=== PATIENT | male | born 1940 | race Caucasian/White ===

== ENCOUNTER → 2017-07-23 | Outpatient (CLI) | payer MEDICARE, OTHER ==
--- NOTE | 2017-07-23 13:05 | Diagnostic Imaging Report ---
PROCEDURE:X-RAY ABDOMEN - KUB COMPARISON:KUB dated 12/24/16 INDICATIONS:RENAL STONES, FOLLOW UP. DENIES COMPLAINTS. FINDINGS: There is a non-obstructed bowel-gas pattern. Unchanged left renal calculi, measuring 7 mm in the inferior pole and 5 mm in the mid pole. There are also multiple subcentimeter right renal calculi, measuring up to 4 mm, unchanged. There are no acute osseous abnormalities. Unchanged right upper quadrant calcification, represents a gallstone or hepatic calcified granuloma. CONCLUSION: Unchanged left renal calculi, measuring 7 mm in the inferior pole and 5 mm in the mid pole. Multiple subcentimeter right renal calculi, measuring up to 4 mm, unchanged. Dictated by: Nirmal Navas M.D. on 07/23/2017 at 13:09 Electronically approved by: Nirmal Navas M.D. on 07/23/2017 at 13:09
== END ==
LOC: RAD 12:04
PROVIDERS: ATTEND Urology
DX: N20.0 Calculus of kidney (principal)
CPT/HCPCS: 74018

== ENCOUNTER → 2018-09-13 | Outpatient (CLI) | payer MEDICARE, OTHER ==
--- NOTE | 2018-09-13 15:39 | Diagnostic Imaging Report ---
Exam: KUB - 2 views Clinical History: Renal calculi Comparison: Multiple prior KUBs, most recently 07/23/2017 Findings: 5 mm calculus overlying the left renal upper pole and 7 mm calculus overlying the left renal mid pole. Possible subtle 2 to 3 mm calculus overlying the right renal lower pole. No other radiographically apparent calculi. The osseous structures appear unremarkable. Nonobstructive bowel gas pattern. No free air. Impression: 5 mm left upper pole renal calculus, 7 mm left mid pole renal calculus and possible 2 to 3 mm calculus overlying the right renal lower pole. Signed by: Meagan Plaza MD on 09/13/2018 3:36 PM
== END ==
LOC: RAD 14:41
PROVIDERS: ATTEND Urology
DX: N20.0 Calculus of kidney (principal)
CPT/HCPCS: 74018

== ENCOUNTER → 2020-03-20 | Outpatient (CLI) | payer MEDICARE, OTHER | LOC: RAD 13:34 | PROVIDERS: ATTEND Urology | DX: N20.0 Calculus of kidney (principal) | CPT/HCPCS: 74018 ==